=== PATIENT | female | born 1950 | race Caucasian/White ===

== ENCOUNTER 2016-09-22 09:48 | Emergency (ER) | payer MEDICARE, OTHER ==
[~2016-09-22 09:48] MED LIST: ASPIR 8181 MG PO; CATAPRES0.1 MG PO; COZAAR25 MG PO; ELAVIL 25 MG TA25 MG PO; ENBREL50 MG/1 ML IM; FLEXERIL 10 MG10 MG PO; NORVASC 5 MG TAB5 MG PO; PREDNISONE 10 M10 MG PO; PRILOSEC OTC20 MG PO; PROTONIX40 MG PO; REGLAN10 MG PO; REQUIP4 MG PO; TENORMIN 50 MG50 MG PO; ULTRAM50 MG PO
[2016-09-22 11:31] LABS: RED BLOOD COUNT 4.22 M/UL (4.00-5.10); WHITE BLOOD COUNT 15.5 K/UL (4.5-11.0)
== END 2016-09-22 15:50 | disposition home or self-care (01) ==
LOC: ER1 09:48
PROVIDERS: Emergency Medicine
DX: J20.9 Acute bronchitis, unspecified (principal); F17.200 Nicotine dependence, unspecified, uncomplicated; I10 Essential (primary) hypertension; M06.9 Rheumatoid arthritis, unspecified
CPT/HCPCS: 36415; 71260; 80053; 85025; 85610; 85730; 93005; 94664; 96361; 96374; 96375; 99285; J1956; J2930; J7030; J7050; Q9962; Q9963

== ENCOUNTER 2021-08-10 09:58 | Emergency (ER) | payer OTHER ==
[~2021-08-10 09:58] MED LIST changes: +ANTIVERT 25MG T25 MG PO; +ASPIRIN CHEWABL81 MG PO; +AUGMENTIN 875-1 EACH PO; +CARDIZEM CD180 MG PO; +CELEXA 20MG TAB20 MG PO; +CHANTIX1 MG PO; -COZAAR25 MG PO; +COZAAR50 MG PO; +EXCEDRIN MIGRA1 EACH PO; +HYDRALAZINE HCL10 MG PO; +HYDROCHLOROTH12.5 M1 PO; +IBUPROFEN800 MG PO; +IMDUR ER TAB 3030 MG PO; +IMDUR ER TAB 6060 MG PO; +LIPITOR TAB 2020 MG PO; +LYRICA50 MG PO; +ONE DAILY MUL400 MCG PO; +REQUIP2 MG PO; +ZOCOR10 MG PO; +ZOFRAN4 MG PO
== END 2021-08-10 13:50 | disposition home or self-care (01) ==
LOC: ER1 09:58
DX: G43.909 Migraine, unspecified, not intractable, without status migrainosus (principal); I10 Essential (primary) hypertension; F17.200 Nicotine dependence, unspecified, uncomplicated; Z88.8 Allergy status to other drugs, medicaments and biological substances
CPT/HCPCS: 70450; 96374; 96375; 99283; J1200; J1885; J2765; J7030

== ENCOUNTER → 2021-11-29 | Outpatient (CLI) | payer OTHER | LOC: KOH-I 09:49 | DX: M50.30 Other cervical disc degeneration, unspecified cervical region (principal); M54.50 Low back pain, unspecified; M47.816 Spondylosis without myelopathy or radiculopathy, lumbar region; Z98.890 Other specified postprocedural states | CPT/HCPCS: 72040; 72100 ==